=== PATIENT | female | born 1960 | race Native Hawaiian/Other Pacific Islander ===

== ENCOUNTER 2024-10-03 00:04 | Emergency (ER) | payer MEDICAID, SELFPAY ==
--- NOTE | 2024-10-03 00:06 | ED_ITS ---
HPI - General Adult General Time Seen by Provider: 00:06 Date Seen: 10/03/24 Chief complaint: Dizziness/Vertigo Stated complaint: Anxiety Time Seen by Provider: 10/03/24 00:06 Source: patient, EMS and RN notes reviewed Mode of arrival: ambulatory Limitations: no limitations History of Present Illness HPI narrative: 64-year-old female with history of hypertension, anxiety, gastric bypass who comes in today with vertigo. This is been going on since this morning, although patient notes she has had intermittent vertigo for about a month. She notes some tenderness, says this switch is ears also is been going on intermittently for about a month. Denies vision changes, headache, numbness or tingling the arms or legs. Has nausea vomiting with her dizziness. Dizziness is worse with head movements. No chest pain, no shortness of breath. Patient was given Benadryl by EMS and reports her symptoms are improved but still present. Related Data Previous Rx's ?Medication ?Instructions ?Recorded meclizine 25 mg chewable tablet 25 mg PO QID #20 tabs 10/03/24 Allergies Allergy/AdvReac Type Severity Reaction Status Date / Time No Known Drug Allergies Allergy Verified 10/03/24 00:17 PFSH PFS Social History Do you use any of these nicotine containing products: None How often do you have a drink containing alcohol: never AUDIT-C Alcohol total score: 0 Non-prescribed substance use: denies use Exam Narrative: Exam Narrative: General: Well-developed and well-nourished, no acute distress Head: Atraumatic and normocephalic Eyes: Pupils are equal reactive, extraocular motions intact, conjunctiva clear ENT: External nose and ears are normal, posterior pharynx without erythema or exudate Neck: No midline cervical tenderness, full spontaneous range of motion the neck, trachea midline, no adenopathy Heart: Regular rate and rhythm no murmurs or thrills Lungs: Clear to auscultation bilaterally without wheezes or crackles Abdomen: Soft, nontender, nondistended with active bowel sounds Musculoskeletal: No tenderness, deformity, or edema Neurologic: Awake, alert, and oriented x3, no gross focal neurologic deficits, cranial nerves intact as tested Psych: Mood and affect are appropriate Skin: No rashes Const: Vital Signs, click to edit/add: Vital Signs - 24 hr 10/03/24 00:13 10/03/24 01:18 Temperature 97.4 F L Pulse Rate [Pulse Oximeter] 52 L 58 L Respiratory Rate 16 18 Blood Pressure [Ri ght Upper Arm] 179/93 H 169/85 H Pulse Oximetry 96 98 Oxygen Delivery Me thod Room Air Room Air Course Course ED Course: Reviewed most recent urgent care visit from November 2022 which was for bee stings and anxiety, prescribed Zyrtec. Patient presents today with vertigo for the last 8 hours. This is worse with head movements and eye movements. Accompanied by nausea vomiting. Notes intermittent vertigo over the past month. Does note some tenderness. Symptoms improved with Benadryl from EMS. On exam here, patient is hypertensive but otherwise vital is stable, appears sleepy likely related to Benadryl. No focal neurologic symptoms on exam. Says dizziness is worse with turning the head particularly to the right. Symptoms likely related to peripheral vertigo. Labs are ordered along CT scan of the head, Zofran for further management of vertigo. Would consider benzodiazepine as well but patient is quite somnolent after receiving Benadryl by EMS. EKG independently interpreted by me performed at 12:39 a.m. demonstrates sinus bradycardia rate 51, no acute ST elevations or depressions, normal intervals normal axis, nonspecific T-wave changes, QTC 451, W[place] 152. No prior for comparison. Reevaluation(s) Time of Reevaluation #1: 02:22 Reevaluation #1: Labs independently interpreted by me with mild leukocytosis, normal basic panel, normal magnesium, negative CRP. Continue work on pain management and plan for discharge. If vertigo cannot be controlled and patient cannot ambulate, willing to admit for further evaluation treatment. Patient has been up to bathroom. On recheck she says feels better and stable for discharge with Vital Signs Vital signs: Initial Vital Signs Temperature 97.4 F L 10/03/24 00:13 Temperature Source Temporal Artery Scan 10/03/24 00:13 Pulse Rate 52 L 10/03/24 00:13 Respiratory Rate 16 10/03/24 00:13 Blood Pressure 179/93 H 10/03/24 00:13 Blood Pressure Mean 121 H 10/03/24 00:13 Blood Pressure Position Semi-Fowlers 10/03/24 00:13 Pulse Oximetry 96 10/03/24 00:13 Oxygen Delivery Method Room Air 10/03/24 00:13 Vital Signs Temperature 97.4 F L 10/03/24 00:13 Pulse Rate 52 L 10/03/24 00:13 Respiratory Rate 16 10/03/24 00:13 Blood Pressure 179/93 H 10/03/24 00:13 Pulse Oximetry 96 10/03/24 00:13 Oxygen Delivery Method Room Air 10/03/24 00:13 Temperature 97.4 F L 10/03/24 00:13 Pulse Rate 58 L 10/03/24 01:18 Respiratory Rate 18 10/03/24 01:18 Blood Pressure 169/85 H 10/03/24 01:18 Pulse Oximetry 98 10/03/24 01:18 Oxygen Delivery Method Room Air 10/03/24 01:18 Medications Administered Medications: Discontinued Medications Generic Name Dose Route Start Last Admin Trade Name Freq PRN Reason Stop Dose Admin Dexamethasone 10 mg 10/03/24 00:43 10/03/24 01:11 Dexamethasone 10 Mg/Ml Pf IVP 10/03/24 00:44 10 mg ONCE ONE Administration Ondansetron HCl 4 mg 10/03/24 00:35 10/03/24 00:39 Ondansetron 2 Mg/Ml Inj IVP 10/03/24 00:36 4 mg ONCE ONE Administration Medical Decision Making Lab Data Labs: Lab Results 10/03/24 Range/Units 01:30 WBC 12.16 H (4.50-11.00) K/uL RBC 4.73 (4.00-5.20) m/uL Hgb 13.9 (12.0-16.0) gm/dL Hct 41.0 (33.0-51.0) % MCV 87 (80-100) fL MCH 29 (26-34) pg MCHC 34 (32-36) gm/dL RDW Coeff of Joesph 12.2 (11.5-15.5) % Plt Count 317 (140-440) K/uL Neut % (Auto) 89.2 H (42.0-72.0) % Lymph % (Auto) 7.6 L (20-44) % Nuckolls % (Auto) 2.8 (0.0-11.0) % Eos % (Auto) 0.0 (0.0-7.0) % Baso % (Auto) 0.2 (0.0-3.0) % Neut # (Auto) 10.80 H (1.7-7.0) K/uL Lymph # (Auto) 0.90 (0.90-2.90) K/uL Nuckolls # (Auto) 0.30 (0.00-0.90) K/UL Eos # (Auto) 0.00 (0.00-0.50) K/uL Baso # (Auto) 0.00 (0.00-0.30) K/uL Abs Immat Gran (auto) 0.00 (0.00-0.30) K/uL Imm/Tot Granulo (auto) 0.2 % Sodium 136 (135-149) mmol/L Potassium 3.9 (3.6-5.1) mmol/L Chloride 102 (96-114) mmol/L Carbon Dioxide 25 (20-32) mmol/L Anion Gap 9 (7-15) mEq/L BUN 15 (7-30) mg/dL Creatinine 0.6 (0.5-1.5) mg/dL Estimated Creat Clear 44.02 Estimated GFR 101 ml/min Glucose 155 H (60-115) mg/dL Calcium 8.8 (8.4-10.6) mg/dL Magnesium 2.2 (1.5-2.6) mg/dL C-Reactive Protein < 0.5 L (0.5-1.0) mg/dL Discharge Plan Discharge Clinical Impression: Vertigo Patient Disposition: Home, Self-Care Condition: Improved Instructions: Vertigo (ED) Additional Instructions: Take medications as needed for nausea, vomiting, and vertigo Follow-up with your primary care doctor for re-evaluation and further treatment Activity Level: Activity as Tolerated Discharge Diet: Regular Prescriptions: New meclizine 25 mg tablet,chewable 25 mg PO QID Qty: 20 0RF Follow Up/Referrals: Michael Mcfadden MD [Primary Care Provider, Internal Medicine] Stand Alone Forms: ViaView Info Instructions
--- OUTSIDE RECORDS SUMMARY | 2024-10-03 00:06 | XMS_ITS | Clinical Summary ---
[facility] Address [address], [place] [address] Care Team Providers Care Bricklayer'S Assistant Name Role Phone Michael Mcfadden MD Primary Care Provider [phone] Source Comments You are receiving this document as you are listed as the primary care provider,follow-up provider, or the patient has been referred to you for consultation.This is in compliance with the Medicare andMedicaid EHR Incentive Program,which states Providers who transition their patient to another setting of careor provider of care or refers their patient to another provider of care shouldprovide summary care record for each transition of care or referral. [facility] Allergies Active Allergy Reactions Criticality Noted Date Comments Hydrocodone Nausea And Vomiting 03/23/2018 Anesthetics, Amide Hives High 02/19/2013 Other 10/17/2017 Cats, hay fever, plastic wrist band , feet itchy with kiwi Medications amLODIPine (NORVASC) 5 MG tablet Take 5 mg by mouth daily. Active Ca Cit Malate-Cholecal ciferol (CALCIUM CITRATE-VITAMIN D) 250-100 MG-UNIT TABS tablet Active Multiple Vitamins-Minera ls (CENTRUM SILVER 50+WOMEN OR) Active Cyanocobalamin (B-12 COMPLIANCE INJECTION IJ) Active cholecalciferol (VITAMIND3) 50 MCG (2000 UT) tablet Take 2,000 Units by mouth daily. Active omega-3 fatty acids (FISH OIL) 1000 MG capsule Take 2 g by mouth daily. Active probiotic (AKA SUPER PROBIOTIC) Take 2 Capsules by mouth daily. Active Active Problems Problem Noted Date Diagnosed Date S/P laparoscopic cholecystectomy 04/30/2018 S/P gastric bypass 04/30/2018 Overview (04/30/2018): Laparoscopic removal of adjustable gastric band and components with conversion to Marisol-en-Y gastric bypass, laparoscopic hiatal hernia repair No elective surgery for 30 days starting 04/30/18 Body mass index (BMI) of 38.0-38.9 in adult 02/16 Overview (03/14/2018): Added automatically from request for surgery [id number] Status post bariatric surgery 03/14/2018 Overview (03/14/2018): Added automatically from request for surgery [id number] Calculus of gallbladder with out cholecystitis without obstruction 03/14/2018 Overview (03/14/2018): Added automatically from request for surgery [id number] HH (hiatus hernia) 03/14/2018 Overview (03/14/2018): Added automatically from request for surgery [id number] Atrial fibrillation 09/16/2017 Obesity (BMI 30-39.9) 09/08/2017 Essential (primary) hypertension 09/08/2017 Anxiety 09/08/2017 IFG (impaired fasting glucose) 09/08/2017 LAP-BAND surgery status 09/08/2017 Immunizations Immunization Administration Dates Next Due Td (7+ yrs) 02/19/2013 Family History Medical History Relation Name Comments Cancer Father Diabetes Father Thyroid Disorder Mother Relation Name Status Comments Father Mother Brother Alive Social History Tobacco Use Types Packs/Day Years Used Date Smoking Tobacco: Former Cigarettes Q uit: 04/16/1994 Smokeless Tobacco: Never Tobacco Cessation:Counseling Given: No Alcohol Use Standard Drinks/Week Comments No 0 (1 standard drink = 0.6 oz pur e alcohol) Comments No Sex and Gender Information Value Date Recorded Sex Assigned at Not on file Legal Sex Female 5:06 AM CDT Gender Identity Not on file Sexual Orientation Not on file Last Filed Vital Signs Vital Sign Reading Time Taken Comments Blood Pressure 137/85 05/28/2019 2:24 PM NETWORK SYSTEM[employer] CONSULTANT Pulse 79 05/28/2019 2:24 PM NETWORK SYSTEMS CONSULTANT Temperature 36.7 C (98 F) 05/02/2018 5:00 AM NETWORK SYSTEMS CONSULTANT Respiratory Rate 20 05/02/2018 5:00 AM NETWORK SYSTEMS CONSULTANT Oxygen Saturation 92% 05/02/2018 5:00 AM NETWORK SYSTEMS CONSULTANT Inhaled Oxygen Concentration - - Weight 61.9 kg (136 lb 8 oz) 05/28/2019 2:24 PM NETWORK SYSTEMS CONSULTANT Height 156.2 cm (5' 1.5) 05/28/2019 2:24 PM NETWORK SYSTEMS CONSULTANT Body Mass Index 25.37 05/28/2019 2:24 PM NETWORK SYSTEMS CONSULTANT Plan of Treatment Health Maintenance Due Date Last Done Comments Cervical Cancer Screening Due 1962 Colon Cancer Screening Plan Due 1962 Hep C Screening (Preventive Services) 1962 Mammogram 1962 HIV Screening (Preventive Services) 1978 Adult Preventive Visit 1980 Pneumococcal Vaccine 50+ Yrs (1 of 1 - PCV) 2012 Zoster/Shingles Vaccine (1 of 2) 2012 DTaP/Tdap/Td Vaccine (1 - Tdap) 02/20/2013 3 Prediabetes: HGBA1C 08/25/2018 08/25/2017 Cholesterol 08/25/2022 08/25/2017 COVID-19 Vaccine ( - 2023-2 5 season) 2023 Influenza Vaccine (Season Ended) 2024 RSV Vaccine (1 - 1-dose 75+ series) 2037 HepA Vaccine Aged Out No longer eligi ble based on patient's age to complete this topic HepB Vaccine Aged Out No longer eligi ble based on patient's age to complete this topic Hib Vaccine Aged Out No longer eligi ble based on patient's age to complete this topic IPV (Polio) Vaccine Aged Out No longe r eligible based on patient's age to complete this topic MCV4 Vaccine Aged Out No longer eligi ble based on patient's age to complete this topic Meningococcal B Vaccine Aged Out No l onger eligible based on patient's age to complete this topic Procedures Procedure Name Priority Date/Time Associated Diagnosis Comments HGB A1C Routine 08/25/2017 8:50 AM CDT Abnormal weight gain Screening for diabetes mellitus LIPID PANEL & DIRECT LDL (IF NEEDED) Routine 08/25/2017 8:50 AM CDT Screening for lipoid disorders from Last 3 Months or Most Recently Relevant to Health Maintenance Results * (ABNORMAL) Lipid Panel and Direct LDL(If Needed) (08/25/2017 8:50 AM CDT) Hours Fasting 12 hours [facility] Cholesterol 198 0 - 199 mg/dl [facility] Triglyceride 178(H) 0 - 149 mg/dl [facility] HDL 46 >40 mg/dl [facility] LDL, Calc. 116 0 - 129 mg/dl [facility] Non HDL Chol, Calc 152 0 - 159 mg/dl [facility] 08/25/2017 8:50 AM CDT 08/25/2017 9:28 AM CDT Narrative [facility] - 08/25/2017 4:08 PM CDT Performed at [facility], [address] [place], [place] [id number] Herber Mendoza PA-C LAB_1 Final R JNS Towersult Performing Organization Address [facility] de Phone Number [facility] [phone] * Hgb A1c (08/25/2017 8:50 AM CDT) Hgb A1c 5.6 4.3 - 5.6 % [facility] 08/25/2017 8:50 AM CDT 08/25/2017 9:28 AM CDT Narrative [facility] - 08/25/2017 4:38 PM CDT Performed at [facility], [address] [place] [id number] Herber Mendoza PA-C LAB_1 Final R esult Performing Organization Address [facility] Co de Phone Number [facility] [phone] from Last 3 Months or Most Recently Relevant to Health Maintenance Advance Directives * Full Code (Latest Code Status on File) Date Activated Date Inactivated Comments 04/30/2018 1:34 PM 05/02/2018 1:44 PM Care Teams Bricklayer'S Assistant Relationship Specialty Start Date End Date Michael Mcfadden MD [address] [place] [id number] PCP - General 02/01/18
[2024-10-03 00:13] VITALS: BP 179/93; PULSE 52; RESP 16; TEMP 36.3; O2SAT 96; BMI 28.3
--- NOTE | 2024-10-03 00:35 | CRLHL7_ITS ---
For Patients: As a result of the Century Cures Act, medical imaging exams and procedure reports are released immediately into your electronic medical record. You may view this report before your referring provider. If you have questions, please contact your health care provider. TECHNIQUE: Multiplanar CT examination of the head was performed without the use of intravenous contrast. INDICATION: Dizziness. Vertigo. COMPARISON: None. FINDINGS: No loss of da silva-white differentiation to suggest recent territorial infarct. No intracranial hemorrhage, abnormal extra-axial fluid collection, hydrocephalus or midline shift. The ventricles and cerebral sulci are prominent in caliber, compatible with mild generalized parenchymal volume loss. There is ill-defined hypoattenuation of the supratentorial white matter diffusely, nonspecific but consistent with chronic microvascular ischemic changes. The basal cisterns are patent. The paranasal sinuses and mastoid air cells remain clear. The orbits and calvarium are unremarkable. The cerebellar tonsils are normal position. IMPRESSION: 1. No acute intracranial findings. 2. Mild generalized parenchymal volume loss with chronic microvascular ischemic changes. Please note that all CT scans at this facility use dose modulation, iterative reconstruction, and/or weight-based dosing when appropriate to reduce radiation dose to as low as reasonably achievable. Dictated by Santana Menjivar MD @ 10/03/2024 1:28:32 AM (Electronically Signed)
[2024-10-03] MEDS: ONDANSETRON 2 MG/ML inj 4 MG IVP (00:39)
[2024-10-03] MEDS: DEXAMETHASONE 10 MG/ML PF IVP (01:11)
[2024-10-03 01:18] VITALS: BP 169/85; PULSE 58; RESP 18; O2SAT 98
[2024-10-03 01:40] LABS: Basophils Percent Auto 0.2 % (0.0-3.0); Hemoglobin* 13.9 gm/dL (12.0-16.0); Immature Granulocytes Pct Auto 0.2 %; Lymphocytes Percent Auto 7.6 % (20-44); Mean Corpuscular HGB Conc 34 gm/dL (32-36); Mean Corpuscular Hemoglobin 29 pg (26-34); Mean Corpuscular Volume 87 fL (80-100); Monocytes Percent Auto 2.8 % (0.0-11.0); Neutrophils Percent Auto 89.2 % (42.0-72.0); Platelet Count* 317 K/uL (140-440); RDW Coefficient of Variation % 12.2 % (11.5-15.5); Red Blood Count 4.73 m/uL (4.00-5.20); White Blood Count* 12.16 K/uL (4.50-11.00)
[2024-10-03 01:44] LABS: Slide Review Reflex No
[2024-10-03 01:51] LABS: Chloride* 102 mmol/L (96-114)
[2024-10-03 01:52] LABS: Potassium* 3.9 mmol/L (3.6-5.1); Sodium* 136 mmol/L (135-149)
[2024-10-03 01:54] LABS: Blood Urea Nitrogen* 15 mg/dL (7-30); Creatinine* 0.6 mg/dL (0.5-1.5); Est. Creatinine Clearance* 44.02; Estimated Glomerular Filt Rate 101 ml/min
[2024-10-03 01:55] LABS: Anion Gap 9 mEq/L (7-15); Calcium* 8.8 mg/dL (8.4-10.6); Carbon Dioxide* 25 mmol/L (20-32); Glucose* 155 mg/dL (60-115); Magnesium* 2.2 mg/dL (1.5-2.6)
[2024-10-03 02:14] LABS: C Reactive Protein* < 0.5 mg/dL (0.5-1.0)
[2024-10-03] MEDS: LORazepam 0.5 MG TABLET PO (02:54)
== END 2024-10-03 02:57 | disposition home or self-care (01) ==
PROVIDERS: Emergency Provider Family Medicine; PCP Internal Medicine
DX: R42 Dizziness and giddiness (principal)
CPT/HCPCS: 36415; 70450; 80048; 83735; 85025; 86140; 93005; 96374; 96375; 99284; 99285; A9270; J1100; J2405